=== PATIENT | female | born 1965 | race African-American/Black ===

== ENCOUNTER 2020-09-28 20:58 | Emergency (ER) | payer OTHER ==
[~2020-09-28] VITALS: Ht 160 cm; Wt 136.1 kg
[2020-09-28] MEDS ORDERED: ASPIRIN 325 MG TABLET PO ONE (22:00)
[2020-09-28] MEDS ORDERED: ASPIRIN 325 MG TABLET ONE (22:17)
--- NOTE | 2020-09-29 01:27 | NUR ---
Called [facility] ETA is 60mins.
[2020-09-29 02:46] VITALS: BP 136/75
--- NOTE | 2020-09-29 02:46 | NUR ---
Patient discharged to home in stable condition via [facility]. Written and verbal after care instructions given. Patient verbalizes understanding of instructions. Stressed follow up or return to ER for worsening s/s.
== END 2020-09-29 02:46 | disposition home or self-care (01) ==
LOC: ER 20:58
DX: S39.012A Strain of muscle, fascia and tendon of lower back, initial encounter (principal); W07.XXXA Fall from chair, initial encounter; Y92.019 Unspecified place in single-family (private) house as the place of occurrence of the external cause; E66.01 Morbid (severe) obesity due to excess calories; Z68.43 Body mass index [BMI] 50.0-59.9, adult; Z86.16 Personal history of COVID-19
CPT/HCPCS: 72100; A4663